=== PATIENT | female | born 1985 | race Caucasian/White ===

== ENCOUNTER → 2018-03-20 | Day surgery (SDC) | payer OTHER, MEDICAID ==
[~2018-03-20] MED LIST: ALEVE220 MG PO; CENTRUM SILVER1 EAC4 PO; EXCEDRIN MIGRA1 EACH PO; LORATIDINE 10 M10 M1 PO; PERCOCET 5-3251 EACH PO
[2018-03-20 09:04] LABS: HEMATOCRIT 41.6 % (37.0-47.0); HEMOGLOBIN 13.7 gm/dL (12.0-15.0)
--- NOTE | 2018-03-27 09:04 | OP ---
[address] [address] OPERATIVE REPORT Name: HARRISJAKE HOGAN Room: [facility]#: [id number] Admission: 03/20/18 Attend Phys: Donald Steiner II Discharge: Date of : 85 Report #: [id number] THIS REPORT FOR: //name// CC: Ramiro Steiner DATE OF SERVICE: 03/20/2018 PREOPERATIVE DIAGNOSIS: Left shoulder superior labrum anterior and posterior tear with impingement. POSTOPERATIVE DIAGNOSES: 1. Left shoulder superior labrum anterior and posterior tear. 2. Subacromial impingement with type 2 acromion. PROCEDURES PERFORMED: 1. Left shoulder arthroscopic surgery with SLAP repair. 2. Subacromial decompression. SURGEON: Donald Steiner II, DO WINDOW ASSEMBLER: ADOLPH Barrios ANESTHESIA: Per operative record. ESTIMATED BLOOD LOSS: Minimal. ANTIBIOTICS: Per operative record. DRAINS: None. COMPLICATIONS: None. CONDITION OF THE PATIENT: Stable to recovery room. DESCRIPTION OF PROCEDURE: The patient was taken to the operative suite, placed supine on the OR table and given appropriate anesthesia. The patient's left shoulder was placed in modified beach chair position and all bony prominences were well padded. Surgery began by posterior portal incision. The arthroscope was advanced in the joint. There was found to be a superior labral tear noted to the anterior and superior margin of the glenoid at the insertion of the biceps tendon. This was roughened along the anterior aspect, establishing an anterior portal, utilizing a ____ rasp down to bleeding tissue. It was then secured utilizing 2 sutures through the anterior and superior margin of the SLAP tear and secured utilizing 2 anchors to the superior margin of the glenoid. This was probed and found to be intact [place] [id number] OPERATIVE REPORT Name: HARRISJAKE Room: [facility]#: [id number] Admission: 03/20/18 Attend Phys: Donald Steiner II Discharge: Date of : 85 Report #: [id number] stability of the biceps tendon at the completion. There was found to be no evidence of rotator cuff tear, only mild fraying and tendinitis. The arthroscope was advanced in the subacromial space. There was found to be significant subacromial bursitis with impingement and narrowing of the acromiohumeral space. Utilizing a shaver, an anterior acromioplasty with subacromial decompression was performed. The AC joint was shown to be intact without evidence of significant arthritis. This was left alone. Final irrigation of the shoulder was then performed. It was then closed with a 4-0 nylon in simple fashion. Dermabond and sterile dressing and sling were applied. The patient transported to recovery room in stable condition. Counts were correct throughout the procedure. <ELECTRONICALLY SIGNED> By: Donald Steiner II, DO 03/27/18 0904 [id number] 1840Donald Steiner II, DO /nt
== END | disposition home or self-care (01) ==
LOC: M.SUR 08:24
PROVIDERS: Orthopaedic Surgery
DX: S43.432A Superior glenoid labrum lesion of left shoulder, initial encounter (principal); M75.82 Other shoulder lesions, left shoulder; M75.42 Impingement syndrome of left shoulder; Z88.2 Allergy status to sulfonamides; M25.812 Other specified joint disorders, left shoulder; Z88.8 Allergy status to other drugs, medicaments and biological substances; Z91.040 Latex allergy status; Z79.899 Other long term (current) drug therapy; X58.XXXA Exposure to other specified factors, initial encounter; Y93.89 Activity, other specified; Y92.89 Other specified places as the place of occurrence of the external cause; Y99.8 Other external cause status